=== PATIENT | female | born 1970 | race Two or more races ===

== ENCOUNTER 2021-07-22 09:26 | Emergency (ER) | payer BC, OTHER ==
[2021-07-22] VITALS (7 sets, daily range): BP systolic 120–135; BP diastolic 57–78
[~2021-07-22] VITALS: Ht 162.6 cm; Wt 86.2 kg
[2021-07-22 10:53] LABS: Basophils # (auto) 0.1 10 ^3/uL (0-0.2); Eosinophils % (auto) 1.1 % (0.0-7.0); Hematocrit 22.6 % (36.0-46.0); Lymphocytes # (auto) 1.9 10 ^3/uL (0.4-5.4); Monocytes # (auto) 0.3 10 ^3/uL (0-1.3); Monocytes % (auto) 5.7 % (0.0-12.0); Red Blood Cells 3.23 10^6/uL (4.0-5.20); White Blood Cell 4.6 10^3/uL (4.4-10.8)
[2021-07-22 10:54] LABS: Albumin 3.7 g/dL (3.4-5.0); Calcium 8.8 mg/dL (8.5-10.1); Potassium 4.1 mmol/L (3.5-5.1)
[2021-07-22 10:56] LABS: Basophils % (auto) 2.2 % (0.0-2.0); Eosinophils # (auto) 0.1 10 ^3/uL (0-0.8); Lymphocytes % (auto) 41.2 % (10.0-50.0); Mean Corpuscular Hemoglobin 19.5 pg (28.0-32.0); Mean Corpuscular Hgb Conc. 27.9 g/dL (32.0-36.0); Neutrophils # (auto) 2.3 10 ^3/uL (1.6-8.6); Neutrophils % (auto) 49.8 % (37.0-80.0); Nucleated Red Blood Cells % 0.1 %; Red Cell Distribution Width 18.6 % (11.8-14.3)
[2021-07-22 10:57] LABS: BUN/Creatinine Ratio 11.8; Bilirubin, Total 0.4 mg/dL (0.2-1.0); Total Protein 7.6 g/dL (6.4-8.2)
[2021-07-22 11:05] LABS: Hemoglobin 6.3 g/dL (12.2-16.2)
[2021-07-22 11:10] LABS: INR 1.03 (0.9-1.15); Partial Thromboplastin Time 24.1 sec (23.6-33.0)
[2021-07-22 17:03] LABS: Urine Bacteria FEW /hpf (None Seen); Urine Blood 2+ /uL (Negative); Urine Hyaline Cast FEW /lpf (0 - 2); Urine Specific Gravity 1.005 (1.001-1.035); Urine WBC 3 /hpf (0 - 5); Urine WBC Clumps PRESENT /hpf (None Seen)
[2021-07-22 18:08] LABS: Hematocrit 26.2 % (36.0-46.0)
== END 2021-07-22 19:47 | disposition home or self-care (01) ==
LOC: ER 09:26
DX: D64.9 Anemia, unspecified (principal); Z20.822 Contact with and (suspected) exposure to COVID-19
CPT/HCPCS: 36415; 36430; 80053; 81001; 84702; 85014; 85018; 85025; 85610; 85730; 86850; 86900; 86901; 86920; 87426; 99291; P9016